=== PATIENT | male | born 1985 | race Caucasian/White ===

== ENCOUNTER 2021-09-27 11:53 | Emergency (ER) | payer OTHER, SELFPAY ==
[2021-09-27 12:04] VITALS: BP 112/66; PULSE 104; RESP 16; TEMP 39.2; O2SAT 98
--- NOTE | 2021-09-27 12:21 | ED.URI ---
HPI - URI/Sore Throat General Chief Complaint: Upper Respiratory Infection Stated Complaint: needs covid test Time Seen by Provider: 09/27/21 12:10 Source: patient, RN notes reviewed and old records reviewed Mode of arrival: ambulatory Limitations: no limitations History of Present Illness HPI Narrative: 35-year-old male [facility] with complaints of fever starting Friday at 2pm while at work and since has developed some cough, nasal congestion and drainage. Patient reports that he had PCR test done this morning at [facility] but will not have test back for possibly 3 days. Patient reports that they just had a new baby 3 weeks ago and his first shift back to work was on Friday. He reports that he has not been anywhere except out to lunch once since son born before returning to work on Friday. Patient has not had Covid vaccinations or any flu shot this season. Patient works in the [employer] [facility] in room where 4 people sit did not have mask on at work on Friday. Patient reports that he took dose of ibuprofen for his temperature prior to arrival at clinic with noted sweating. He reports that he has been taking Zyrtec and Flonase also. MD elicited complaint: fever, cough, rhinorrhea, nasal congestion and other (body aches) Pertinent past history: seasonal allergies Onset (ago): day(s) (1) Consistency: constant Description of mucous: clear Able to tolerate fluids by mouth: Yes Associated symptoms: fever, myalgias, rhinorrhea, nasal congestion and cough Treatments prior to arrival: ibuprofen and other (Flonase and Zyrtec) Related Data Home Medications Medication Instructions Recorded Confirmed cetirizine [Zyrtec] 10 mg PO DAILY 05/26/19 09/27/21 fluticasone propionate [Flonase 50 mcg INTRANASAL DAILY 05/26/19 09/27/21 Allergy Relief] lisinopril-hydrochlorothiazide 20 tablet PO DAILY 05/26/19 09/27/21 montelukast 10 mg PO DAILY 05/26/19 09/27/21 Allergies Allergy/AdvReac Type Severity Reaction Status Date / Time No Known Allergies Allergy Verified 09/27/21 12:24 Review of Systems Review of Systems: CONSTITUTIONAL: Positive for fever, chills, or sweats. EYES: Denies visual changes, redness, or discharge. ENT: Positive for rhinorrhea, congestion,denies sore throat, or otalgia. CARDIOVASCULAR: Denies chest pain, palpitations, or edema. RESPIRATORY: Positive for cough denies dyspnea. GASTROINTESTINAL: Denies abdominal pain, nausea, vomiting, or diarrhea. GENITOURINARY: Denies dysuria or hematuria. SKIN: Denies rash or itching. MUSCULOSKELETAL: Denies back pain, joint pain, or myalgia. NEUROLOGIC: Denies headache, numbness, or weakness. PSYCHIATRIC: Denies anxiety or depression. All systems reviewed & are unremarkable except as noted in HPI and below PMFSH Past Medical History Medical History (Updated 09/27/21 @ 12:38 by Betzy Castellano NP) Hypertension Social History Social History (Updated 09/27/21 @ 13:58 by Betzy Castellano NP) Smoking status: Never smoker Alcohol intake: current Alcohol use details: social Substance use type: does not use Living arrangements: with family Gender identity (if verbalized by the patient): Male Comments At time of signature, agree with nursing past medical, surgical, social and family history. There is no relevant family history pertinent to the presenting complaint Exam Narrative: GENERAL: Ill-appearing, well-nourished,obese and in some acute distress, positive fever at triage 102.5F. HEAD: Normocephalic, atraumatic. EYES: PERRLA and EOMI. ENT: Nares red with clear rhinorrhea no epistaxis. Mucous membranes moist.TM's normal with good light reflex, throat red with no lesions or exudates, or tonsil swelling, post nasal drainage. NECK: Supple. no lymphadenopathy CHEST: Clear to auscultation. No respiratory distress.SAO2 98% on room air cough nonproductive. HEART: Regular rate and rhythm. No murmur heard. Jodie
== END 2021-09-27 12:50 | disposition home or self-care (01) ==
PROVIDERS: Emergency Provider Registered Nurse
DX: U07.1 COVID-19 (principal); I10 Essential (primary) hypertension
CPT/HCPCS: 87426; 87804; 99213; C9803; G0463